=== PATIENT | female | born 1935 | race African-American/Black ===

== ENCOUNTER 2017-05-12 13:25 | Outpatient (CLI) | payer MEDICARE ==
--- NOTE | 2017-05-12 15:18 | Mammography Report ---
BILATERAL MAMMOGRAM: FINDINGS: The breasts are almost entirely fat (<25% glandular). No mass, distortion, suspicious calcification, or skin change is seen. No significant change compared to her prior study in February 2013. CAD was utilized. IMPRESSION: Negative mammogram. There is no mammographic evidence of malignancy. RECOMMENDATION: Follow-up per ACS guidelines. BI-RADS CATEGORY: 1 = Negative ACR BI-RADS MAMMOGRAPHIC CODES: 0 = Needs additional imaging evaluation; 1 = Negative; 2 = Benign; 3 = Probably benign; 4 = Suspicious; 5 = Malignant; 6 = Known biopsy-proven malignancy COMMENT: 1. Dense breast tissue, i.e., adenosis, fibrocystic changes, etc., may obscure an underlying neoplasm. 2. Approximately 10% of cancers are not detected with mammography. 3. A negative mammography report should not delay biopsy if a clinically suspicious mass is present. COMMENT: Patient follow-up letters are generated in [facility].
== END 2017-05-12 13:26 | disposition home or self-care (01) ==
LOC: MAMMO 13:25
PROVIDERS: ATTEND Obstetrics & Gynecology Gynecology
DX: Z12.31 Encounter for screening mammogram for malignant neoplasm of breast (principal)
CPT/HCPCS: 77067; G0202

== ENCOUNTER 2017-07-19 12:44 | Outpatient (CLI) | payer MEDICARE ==
--- NOTE | 2017-07-20 08:59 | Ultrasound Report ---
ULTRASOUND PELVIS COMPLETE - TRANSABDOMINAL AND TRANSVAGINAL: INDICATION: Prolapse, vaginal ulcer. COMPARISON: None similar. FINDINGS: Transabdominal and transvaginal pelvic sonography performed in this postmenopausal patient suggests an anteverted, though possibly retroflexed 8.3 x 4.4 x 4.1 cm uterus. Endometrial thickness of 1.3 cm towards the fundus as on endovaginal image 8. Small nabothian cyst. No pelvic free fluid. Some urinary bladder debris not excluded. Unremarkable ovaries, 1.4 x 0.6 x 0.9 cm on the right and 1.5 x 0.7 x 1 cm on the left. CONCLUSION: 1. Endometrial stripe towards the fundus somewhat prominent/thickened for the postmenopausal status, etiology or clinical significance uncertain. 2. Other findings, including possible urinary bladder debris. Please correlate. Thank you for the opportunity to participate in this patient's care.
== END 2017-07-19 12:45 | disposition home or self-care (01) ==
LOC: US 12:44
PROVIDERS: ATTEND Obstetrics & Gynecology Gynecology
DX: N76.5 Ulceration of vagina (principal); N81.4 Uterovaginal prolapse, unspecified; N88.8 Other specified noninflammatory disorders of cervix uteri; Z78.0 Asymptomatic menopausal state
CPT/HCPCS: 76830; 76856